=== PATIENT | male | born 1945 | race Caucasian/White ===

== ENCOUNTER 2017-03-01 09:38 | Day surgery (SDC) | payer MEDICARE, BC ==
[2017-02-22 10:41] VITALS: BMI 37.3
[~2017-03-01 09:38] MED LIST: ALPRAZolam 0.25 MG TAB PO PRN; ALPRAZolam 0.5 MG TAB PO PRN; ASPIRIN 325 MG TAB PO STA; ATORVASTATIN 80 MG TAB PO STA; NITROGLYCERIN SL TABS 0.4 MG TAB SUBLINGUAL PRN; SODIUM CHLORIDE 0.9% 1,000 ML in EMPTY BAG 1 BAG IV ONE
[2017-03-01] MEDS ORDERED: SODIUM CHLORIDE 0.9% 1,000 ML IV ONE (10:20)
[2017-03-01 10:25] LABS: Glucose,Whole Blood 222 mg/dL (75-99)
[2017-03-01 10:50] LABS: Basophils % (A) 0 %; CH 30.1; CHCM 32.8; Eosinophils # (A) 0.1 k/uL (0-0.7); Eosinophils % (A) 2 %; HCT 39.5 % (39.0-53.0); HDW 2.54; Luc # (Auto) 0.15; Luc % (Auto) 3; Lymphocytes # (A) 1.1 k/uL (1.0-4.8); Lymphocytes % (A) 17 %; MCH 30.4 pg (25.0-35.0); MCV 92.4 fL (80.0-100.0); Mean Platelet Volume 6.5; Monocytes # (A) 0.3 k/uL (0-1.0); Monocytes % (A) 5 %; Neutrophils # (A) 4.6 k/uL (1.3-7.7); Neutrophils % (A) 74 %; RBC 4.28 m/uL (4.30-5.90); RDW 14.6 % (11.5-15.5); WBC 6.2 k/uL (3.8-10.6); WBC (Perox) 6.62
[2017-03-01 10:55] LABS: Anion Gap 11 mmol/L; Blood Urea Nitrogen 19 mg/dL (9-20); Carbon Dioxide 23 mmol/L (22-30); Chloride 102 mmol/L (98-107); Glucose 236 mg/dL (74-99); Non-African American GFR(MDRD) >60 (>60 ml/min/1.73 sqM); Potassium 4.9 mmol/L (3.5-5.1); Sodium 136 mmol/L (137-145)
[2017-03-01] MEDS ORDERED: HEPARIN SODIUM 1,000 UN/ML (10ML VL) ONE (11:17)
[2017-03-01] MEDS ORDERED: VERAPAMIL 2.5 MG/ML 2 ML AMP ONE (11:17)
[2017-03-01] MEDS ORDERED: LIDOCAINE 2% INJ 20 MG/ML (20 ML MDV) ONE ×2 (11:29→12:11)
[2017-03-01] MEDS ORDERED: MIDAZOLAM 2 MG/2 ML VIAL ONE (11:35)
[2017-03-01] MEDS ORDERED: diphenhydrAMINE 50 MG/ML 1 ML VIAL ONE (11:36)
[2017-03-01] MEDS ORDERED: MIDAZOLAM 2 MG/2 ML VIAL IV ONE (11:55)
[2017-03-01] MEDS ORDERED: diphenhydrAMINE 50 MG/ML 1 ML VIAL IVP ONE (11:57)
[2017-03-01] MEDS ORDERED: LIDOCAINE 2% INJ 20 MG/ML SQ ONE ×2 (11:58→12:12)
[2017-03-01] MEDS ORDERED: VERAPAMIL SYRINGE (5 MG/10 ML) INTRAARTER ONE (12:02)
[2017-03-01] MEDS ORDERED: IOHEXOL 350 MG/ML 100 ML BOTTLE INJ ONE (12:27)
[2017-03-01] MEDS ORDERED: IOHEXOL 300 MG/ML 50 ML BOTTLE INJ ONE (12:28)
[2017-03-01] MEDS ORDERED: SODIUM CHLORIDE 0.9% 1,000 ML IV SCH (13:00)
[2017-03-01 14:54] VITALS: RESP 18; TEMP 97.8
[2017-03-01 16:59] LABS: Glucose,Whole Blood 214 mg/dL (75-99)
[2017-03-01] MEDS ORDERED: GLIMEPIRIDE 4 MG TAB PO SCH (17:30)
[2017-03-01 17:51] VITALS: BP 132/70; PULSE 46
[2017-03-01] MEDS ORDERED: amLODIPine 5 MG TAB PO SCH (21:00)
[2017-03-01] MEDS ORDERED: ATENOLOL 25 MG TAB PO SCH (21:00)
[2017-03-02] MEDS ORDERED: ISOSORBIDE MONONITRATE ER 30 MG TAB.ER.24H PO SCH (09:00)
[2017-03-02] MEDS ORDERED: LISINOPRIL 20 MG TAB PO SCH (09:00)
--- NOTE | 2017-03-02 12:42 | CC ---
CARDIAC CATHETERIZATION REPORT DATE OF PROCEDURE: 03/01/2017. PROCEDURE PERFORMED: Left heart catheterization, coronary angiography, left ventriculography. PERFORMED BY: Dr. Temi Montgomery. CLINICAL INFORMATION: Mr. Dimas Esparza is a 71-year-old gentleman with a known history of CAD and PTCA of LAD performed 24 years ago by me here at [facility]. This gentleman over the years has developed type 2 diabetes mellitus. He has hypertension and hyperlipidemia. He is reasonably active. Recently stress test revealed evidence of ischemia in the lateral wall and he was therefore advised cardiac catheterization. The risks, benefits, options and rationale were explained to the patient. PROCEDURE NOTE: Under local anesthesia and strict aseptic precautions, I gained access into the right radial artery. However I noted that there was extreme tortuosity in the brachial system and at the ascending aorta and therefore I switched over to the femoral approach. Under strict aseptic precautions and local anesthesia, a 6-Portuguese introducer was placed in the right radial artery. Using standard Leslie catheters, I performed coronary angiography and a pigtail catheter was used to perform left ventriculogram in the 30 degree KIMBLE projection. Patient tolerated procedure well without complication. The right femoral sheath was taken out. An Angio-Seal device used to secure hemostasis. I took the right radial sheath out and placed a Tracelet. Good hemostasis was secured. Saturation in the fingers of the right hand was 95%. CARDIAC CATHETERIZATION FINDINGS: The left ventricular end-diastolic pressure was about 14-15 mmHg and there was no gradient across aortic valve. CORONARY ANGIOGRAPHY FINDINGS : Left main coronary artery: This vessel has mild diffuse disease and there is significant aneurysmal change at the distal end before it bifurcates into circumflex and LAD. 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 Left anterior descending coronary artery: A good caliber vessel initially and then the caliber decreases. There is diffuse disease throughout. In the midportion of the origin of the diagonal branch, there is a 40% narrowing. Just proximal at the site of prior angioplasty, the vessel is patent. There is a large first septal branch that has 80% ostial stenosis. There is a fair sized diagonal branch that comes off that has a 70-80% stenosis. The LAD itself has diffuse disease and the diagonal also has diffuse disease, both of them supply a fair amount of myocardium. The diagonal has a smaller distribution vessel but has a 70-80% stenosis and this represents the area of ischemia on the stress test. However, the entire LAD system is small in caliber and distribution overall. Left posterior circumflex coronary artery: Nondominant vessel. It gives off a very proximal a groove branch and obtuse marginal. Both of these vessels have mild diffuse disease throughout. No significant critical stenosis but the entire circumflex nondominant system is diffusely diseased. Right coronary artery. Very super dominant vessel has about a 30-40% proximal lesions. Distally bifurcates into a larger PLV and smaller PDA both of which supply a sizable amount of myocardium. There is no significant disease in the super dominant RCA system. Left ventriculogram: This was performed in 30 degree KIMBLE projection. Ejection fraction is 55% without mitral regurgitation. FINAL IMPRESSION: This patient has a right dominant system. There was diffuse disease in the entire left system. The circumflex is a nondominant diffusely diseased vessel with noncritical lesions. LAD has about a 40% mid lesion. Diagonal has a 70% lesion and the first septal has an 80% lesion. The left ventricle systolic function is well preserved. The super dominant RCA has mild irregularities. No significant disease. 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 RECOMMENDATIONS: Findings were discussed with the patient and family. I am recommending aggressive medical therapy without intervention at this time. The aneurysmal distal left main also will not be addressed at this time. However, the diagonal disease can explain patient's symptoms. For this I will pursue medical therapy. Patient will be discharged later on today and I will see him on Saturday in the office. Moderate conscious sedation was provided for a total duration of 35 minutes. Copy of this to go Dr. Clarke. MMODL / IJN: [id number] /
--- NOTE | 2017-03-02 12:48 | LTR ---
Date: Dear Dr. Clarke: Thank you for the opportunity to participate in the care of Mr. Dimas Esparza. This gentleman has progression of CAD with diffuse disease in the left system but no critical lesions other than the diagonal vessel for which I am recommending medical therapy. Please find enclosed my cardiac cath report for your records. Thank you very much for your kind referral. Please call for questions. With kindest regards, Sincerely yours, MMODL / IJN: [id number] /
[2017-03-02] MEDS ORDERED: ASPIRIN 81 MG CHEW PO SCH (21:00)
[2017-03-02] MEDS ORDERED: ATORVASTATIN 40 MG TAB PO SCH (21:00)
== END 2017-03-01 18:55 | disposition home or self-care (01) ==
LOC: CATHCVL 09:38 → 3OBS 12:31 → CATHCVL 18:55
PROVIDERS: ATTEND Internal Medicine Interventional Cardiology
DX: I25.41 Coronary artery aneurysm (principal); I25.110 Atherosclerotic heart disease of native coronary artery with unstable angina pectoris; I10 Essential (primary) hypertension; Z87.891 Personal history of nicotine dependence; Z98.61 Coronary angioplasty status; I77.1 Stricture of artery; E78.00 Pure hypercholesterolemia, unspecified; E11.9 Type 2 diabetes mellitus without complications; Z79.84 Long term (current) use of oral hypoglycemic drugs; E78.5 Hyperlipidemia, unspecified; E66.9 Obesity, unspecified; Z68.30 Body mass index [BMI] 30.0-30.9, adult; Z79.82 Long term (current) use of aspirin; Z79.899 Other long term (current) drug therapy; Z88.5 Allergy status to narcotic agent
CPT/HCPCS: 93458; 80048; 85025; 99152; 99153; C1760; C1769 ×4; C1894 ×2; J2001; J2250; J1200; Q9967 ×2; J1644

== ENCOUNTER 2021-02-24 13:53 | Emergency (ER) | payer MEDICARE, BC ==
[2021-02-24 14:47] VITALS: RESP 18
--- NOTE | 2021-02-24 15:52 | ED ---
Recheck HPI - General Chief Complaint: Recheck/Abnormal Lab/Rx Stated Complaint: Poss Covid Exposure Time Seen by Provider: 02/24/21 14:59 Source: patient, RN notes reviewed Mode of arrival: ambulatory Limitations: no limitations - History of Present Illness Initial Comments: Patient is a 75-year-old male that presents to the emergency department compla ining of needing a Covid test because his tested positive. Patient denies having any symptoms at this time. He is otherwise a well-appearing 75-year-old male in no apparent distress or pain. He denied any chest pain first breath headache nausea vomiting diarrhea constipation fever fatigue chills. - Related Data Home Medications Medication Instructions Recorded Confirmed Aspirin [Adult Low Dose Aspirin EC] 81 mg PO HS 02/22/17 03/01/17 Atorvastatin [Lipitor] 40 mg PO Q2D 02/22/17 03/01/17 Glimepiride [Amaryl] 4 mg PO BID 02/22/17 03/01/17 Isosorbide Mononitrate ER [Imdur] 30 mg PO DAILY 02/22/17 03/01/17 amLODIPine [Norvasc] 5 mg PO DAILY 02/22/17 03/01/17 atenoloL [Tenormin] 25 mg PO BID 02/22/17 03/01/17 lisinopriL [Zestril] 20 mg PO DAILY 02/22/17 03/01/17 metFORMIN HCL [Glucophage] 1,000 mg PO BID 02/22/17 03/01/17 Allergies Allergy/AdvReac Type Severity Reaction Status Date / Time morphine Allergy Anaphylaxis Verified 02/24/21 14:47 Review of Systems ROS Statement: Those systems with pertinent positive or pertinent negative responses have been documented in the HPI. ROS Other: All systems not noted in ROS Statement are negative. Past Medical History Past Medical History: Cancer, Diabetes Mellitus, Hyperlipidemia, Hypertension Additional Past Medical History / Comment(s): colon cancer History of Any Multi-Drug Resistant Organisms: None Reported Past Surgical History: Bowel Resection, Joint Replacement Additional Past Surgical History / Comment(s): rt hip replacement, angioplasty Past Anesthesia/Blood Transfusion Reactions: No Reported Reaction Past Psychological History: No Psychological Hx Reported Smoking Status: Former smoker Past Alcohol Use History: None Reported Past Drug Use History: None Reported - Past Family History Sister(s) Family Medical History: Cancer General Exam Limitations: no limitations General appearance: alert, in no apparent distress, obese Head exam: Present: atraumatic, normocephalic, normal inspection Eye exam: Present: normal appearance, PERRL, EOMI. Absent: scleral icterus, conjunctival injection, periorbital swelling Neck exam: Present: normal inspection Respiratory exam: Present: normal lung sounds bilaterally. Absent: respiratory distress, wheezes, rales, rhonchi, stridor Cardiovascular Exam: Present: regular rate, normal rhythm, normal heart sounds. Absent: systolic murmur, diastolic murmur, rubs, gallop, clicks GI/Abdominal exam: Present: soft, normal bowel sounds. Absent: distended, tenderness, guarding, rebound, rigid Extremities exam: Present: normal inspection, full ROM, normal capillary refill. Absent: tenderness, pedal edema, joint swelling, calf tenderness Neurological exam: Present: alert, oriented X3 Psychiatric exam: Present: normal affect, normal mood Skin exam: Present: warm, dry, intact, normal color. Absent: rash Course Vital Signs 02/24/21 14:45 Temperature 98.5 F Pulse Rate 55 L Respiratory 18 Rate Blood Pressure 143/82 O2 Sat by Pulse 96 Oximetry Medical Decision Making - Medical Decision Making 75-year-old male wanting a Covid test because tested positive. Denied any symptoms. Covid test ordered. Covid test positive. Patient meets criteria for monoclonal antibody therapy and wishes to undergo the IV infusion. Case discussed with Dr. Townsend, patient discharge home. - Lab Data Lab Results 02/24/21 Range/Units 14:50 Coronavirus (PCR) Detected A (Not Detectd) Disposition Clinical Impression: COVID Disposition: HOME SELF-CARE Condition: Stable Instructions (If sedation given, give patient instructions): Coronavirus Disease 2019 (COVID-19) Additional Instructions: Please return to the Emergency Department if symptoms worsen or any other guille rns. Tylenol Motrin for any fevers. Follow-up primary care and possible. Follow CDC guidelines and quarantine for 7-10 days. Is patient prescribed a controlled substance at d/c from ED?: No Referrals: Jun Clarke MD [Primary Care Provider] - 1-2 days Time of Disposition: 16:17
[2021-02-24] MEDS ORDERED: SODIUM CHLORIDE 0.9% 50 ML IVPB ONE (16:45)
[2021-02-24] MEDS ORDERED: CASIRIVIMAB/IMDEVIMAB (EUA) 1,200 MG in SODIUM CHLORIDE 0.9% 100 ML IVPB ONE (17:00)
[2021-02-24 18:00] VITALS: TEMP 97.4
[2021-02-24 18:31] VITALS: BP 153/76; PULSE 61
== END 2021-02-24 18:34 | disposition home or self-care (01) ==
LOC: EC 13:53
DX: U07.1 COVID-19 (principal); I10 Essential (primary) hypertension; E78.5 Hyperlipidemia, unspecified; E11.9 Type 2 diabetes mellitus without complications; Z88.5 Allergy status to narcotic agent; Z79.899 Other long term (current) drug therapy; Z87.891 Personal history of nicotine dependence; Z79.84 Long term (current) use of oral hypoglycemic drugs
CPT/HCPCS: 87635; 99283; 96365; Q0243